=== PATIENT | female | born 1980 | race Caucasian/White ===

== ENCOUNTER 2017-11-21 07:04 | Day surgery (SDC) | payer OTHER ==
[2017-11-21] MEDS: BUPIVACAINE 0.5%/EPI (SDV) 30 ML INJ INJ
[~2017-11-21 07:04] MED LIST: CEFAZOLIN 2 GM/50 ML (PMX) 50 ML IVPB; SOD CHLORIDE 0.9% 1,000 ML IV
[2017-11-21 08:28] LABS: ADD MAN DIFF? NO
[2017-11-21 08:34] LABS: BASOPHIL # 0.1 10^3/ul (0.0-0.1); BASOPHILS % 0.5 % (0.0-2.0); EOSINOPHILS # 0.2 10^3/ul (0.0-0.5); EOSINOPHILS % 2.4 % (0.0-7.0); HEMATOCRIT 34.8 % (37.0-47.0); HEMOGLOBIN 11.6 g/dl (12.0-16.0); LYMPHOCYTES # 2.8 10^3/ul (0.8-2.9); LYMPHOCYTES % 29.1 % (15.0-51.0); MEAN CORPUSCULAR HEMOGLOBIN 26.9 pg (29.0-33.0); MEAN CORPUSCULAR HGB CONC 33.3 g/dl (32.0-37.0); MEAN CORPUSCULAR VOLUME 80.7 fl (82.0-101.0); MONOCYTE # 0.5 10^3/ul (0.3-0.9); MONOCYTES % 5.4 % (0.0-11.0); NEUTROPHILS % 62.2 % (39.0-77.0); PLATELET COUNT 435 10^3/UL (140-415); RED BLOOD COUNT 4.31 10^6/ul (4.20-5.40); RED CELL DISTRIBUTION WIDTH 13.8 % (11.5-14.5)
[2017-11-21 08:34] LABS: WHITE BLOOD COUNT 9.7 10^3/ul (4.8-10.8)
[2017-11-21 08:54] LABS: ALANINE AMINOTRANSFERASE 20 IU/L (13-69); ALBUMIN 4.3 g/dl (3.3-4.9); ALBUMIN/GLOBULIN RATIO 1.16; ALKALINE PHOSPHATASE 93 IU/L (42-121); ANION GAP 14 (8-16); ASPARTATE AMINO TRANSFERASE 21 IU/L (15-46); BILIRUBIN,INDIRECT 0.3 mg/dl (0-1.1); BILIRUBIN,TOTAL 0.3 mg/dl (0.2-1.3); CARBON DIOXIDE 25 mmol/L (21-31); CHLORIDE 110 mmol/L (97-110); INR 0.97
[2017-11-21 08:55] LABS: PARTIAL THROMBOPLASTIN TIME 29.4 Sec (25.0-35.0)
[2017-11-21 08:59] LABS: BLOOD UREA NITROGEN 10 mg/dl (7-20); CALCIUM 9.4 mg/dl (8.4-10.2); CREATININE 0.54 mg/dl (0.44-1.00); GLUCOSE 99 mg/dl (70-220); POTASSIUM 3.9 mmol/L (3.5-5.1); SODIUM 145 mmol/L (135-144)
[2017-11-21] MEDS ORDERED: ROCURONIUM 50 MG INJ (09:49)
[2017-11-21] MEDS ORDERED: MIDAZOLAM 1 MG/ML 2 ML INJ (09:49)
[2017-11-21] MEDS ORDERED: CEFAZOLIN 1 GM INJ (09:49)
[2017-11-21] MEDS ORDERED: PROPOFOL 20 ML (09:49)
[2017-11-21] MEDS ORDERED: FENTAnyl 50 MCG/ML VIAL (09:49)
[2017-11-21] MEDS ORDERED: ROPIVACAINE 0.5 % 30 ML VIAL (09:50)
[2017-11-21] MEDS ORDERED: DEXAMETHASONE 4 MG/ML 1 ML INJ (10:13)
[2017-11-21] MEDS ORDERED: SUGAMMADEX SODIUM 200 MG/2 ML VIAL IV (10:13)
[2017-11-21] MEDS ORDERED: ONDANSETRON 4 MG INJ (10:13)
[2017-11-21] MEDS ORDERED: KETOROLAC 30 MG INJ (10:13)
[2017-11-21] MEDS ORDERED: METOCLOPRAMIDE 10 MG INJ (10:13)
[2017-11-21] MEDS: morphine 2 MG INJ IV (11:19)
[2017-11-21] MEDS ORDERED: HYDROmorphONE (0.2 MG/ML) 10ML SYG IV ×5 (11:30→12:00)
[2017-11-21] MEDS ORDERED: FENTAnyl 50 MCG/ML VIAL IV ×6 (11:30→12:00)
[2017-11-21] MEDS ORDERED: ONDANSETRON 4 MG INJ IV (11:30)
[2017-11-21] MEDS ORDERED: KETOROLAC 30 MG INJ IV (11:30)
[2017-11-21] MEDS ORDERED: IBUPROFEN 600 MG TAB PO (11:30)
[2017-11-21] MEDS ORDERED: HYDROCODONE/APAP (5/325) TAB PO (11:30)
[2017-11-21] MEDS ORDERED: MEPERIDINE 25 MG INJ (11:35)
[2017-11-21] MEDS: MEPERIDINE 25 MG INJ IV (11:44)
[2017-11-21] MEDS: HYDROmorphONE (0.2 MG/ML) 10ML SYG IV (12:02)
[2017-11-21] MEDS: ONDANSETRON 4 MG INJ IV (12:03)
[2017-11-21] MEDS: HYDROCODONE/APAP (5/325) TAB PO (13:57)
== END 2017-11-21 14:50 | disposition home or self-care (01) ==
LOC: SDS 07:04
DX: K80.10 Calculus of gallbladder with chronic cholecystitis without obstruction (principal); J45.909 Unspecified asthma, uncomplicated
CPT/HCPCS: 47562; 80053; 85025; 85610; 85730; 88304